=== PATIENT | male | born 1980 | race Caucasian/White ===

== ENCOUNTER 2016-12-02 22:41 | Emergency (ER) | payer OTHER ==
[2016-12-02 23:18] VITALS: TEMP 97.9
[2016-12-03] MEDS ORDERED: KETOROLAC 30 MG/ML 1 ML VIAL IVP STA (00:49)
[2016-12-03 01:13] LABS: Appearance,Urine Clear (Clear); Bilirubin,Urine Negative (Negative); Glucose,Urine (UA) Negative (Negative); Ketones,Urine Negative (Negative); Leukocyte Esterase,Urine Negative (Negative); Nitrite,Urine Negative (Negative); PH, Urine 6.5 (5.0-8.0); Protein,Urine Negative (Negative); UA Billing (MACRO vs. MICRO) CHEM; Urobilinogen,Urine <2.0 mg/dL (<2.0)
[2016-12-03 01:18] LABS: Basophils # (A) 0.1 k/uL (0-0.2); Basophils % (A) 1 %; CH 31.6; Eosinophils # (A) 0.3 k/uL (0-0.7); Eosinophils % (A) 4 %; HCT 44.5 % (39.0-53.0); HDW 2.38; Luc # (Auto) 0.23; Luc % (Auto) 3; Lymphocytes # (A) 3.6 k/uL (1.0-4.8); Lymphocytes % (A) 40 %; MCH 31.4 pg (25.0-35.0); MCHC 33.8 g/dL (31.0-37.0); MCV 93.1 fL (80.0-100.0); Mean Platelet Volume 7.9; Monocytes # (A) 0.5 k/uL (0-1.0); Monocytes % (A) 6 %; Neutrophils # (A) 4.3 k/uL (1.3-7.7); Neutrophils % (A) 47 %; RBC 4.78 m/uL (4.30-5.90); RDW 12.8 % (11.5-15.5); WBC 9.1 k/uL (3.8-10.6); WBC (Perox) 9.05
[2016-12-03 01:24] LABS: ALT 49 U/L (21-72); AST 39 U/L (17-59); Alkaline Phosphatase 74 U/L (38-126); Anion Gap 10 mmol/L; Blood Urea Nitrogen 16 mg/dL (9-20); Calcium 9.3 mg/dL (8.4-10.2); Carbon Dioxide 27 mmol/L (22-30); Chloride 105 mmol/L (98-107); Glucose 86 mg/dL (74-99); Non-African American GFR(MDRD) >60 (>60 ml/min/1.73 sqM); Potassium 3.9 mmol/L (3.5-5.1); Sodium 142 mmol/L (137-145); Total Bilirubin 0.6 mg/dL (0.2-1.3); Total Protein 6.9 g/dL (6.3-8.2)
--- NOTE | 2016-12-03 01:38 | XR ---
EXAM: XR Abdomen, 1 View CLINICAL HISTORY: Reason: Pain TECHNIQUE: Frontal supine view of the abdomen/pelvis. COMPARISON: No relevant prior studies available. FINDINGS: Intraperitoneal space: No free air under the hemidiaphragms. Gastrointestinal tract: Nonobstructive bowel gas pattern. Organs: No organomegaly. Bones/joints: Unremarkable. Other findings: No suspicious calcifications. IMPRESSION: No acute findings.
--- NOTE | 2016-12-03 02:00 | ED ---
Abdominal Pain HPI - General Chief Complaint: Abdominal Pain Stated Complaint: abdominal pain Time Seen by Provider: 12/03/16 00:31 Source: patient, RN notes reviewed, old records reviewed Mode of arrival: ambulatory Limitations: no limitations - History of Present Illness Initial Comments: This is a 36 year old male with 2 days of periumbilical pain. Patient is concerned he has a hernia. Patient was seen at an urgent clinic today and they stated that he was constipated. PAtient reports he has done multiple things to relief constipation and has had large bowelmovements, but continues to have pain. Patient denies any fever chills, nausea, vomiting. PAtient states that there is no bulge at his umbilicus. Denies any blood in his stools. - Related Data Home Medications Medication Instructions Recorded Confirmed No Known Home Medications [No 12/02/16 12/02/16 Known Home Medications] Allergies Allergy/AdvReac Type Severity Reaction Status Date / Time No Known Allergies Allergy Verified 12/02/16 23:18 Review of Systems ROS Statement: Those systems with pertinent positive or pertinent negative responses have been documented in the HPI. ROS Other: All systems not noted in ROS Statement are negative. Past Medical History Past Medical History: No Reported History History of Any Multi-Drug Resistant Organisms: None Reported Past Surgical History: No Surgical Hx Reported Past Psychological History: No Psychological Hx Reported Smoking Status: Never smoker Past Alcohol Use History: Occasional Past Drug Use History: Marijuana General Exam - General Exam Comments Initial Comments: Well appearing 36 year old male, no distress. Limitations: no limitations General appearance: alert, in no apparent distress Head exam: Present: atraumatic, normocephalic, normal inspection Eye exam: Present: normal appearance, PERRL, EOMI. Absent: scleral icterus, conjunctival injection, periorbital swelling ENT exam: Present: normal exam, mucous membranes moist Neck exam: Present: normal inspection. Absent: tenderness, meningismus, lymphadenopathy Respiratory exam: Present: normal lung sounds bilaterally. Absent: respiratory distress, wheezes, rales, rhonchi, stridor Cardiovascular Exam: Present: regular rate, normal rhythm, normal heart sounds. Absent: systolic murmur, diastolic murmur, rubs, gallop, clicks GI/Abdominal exam: Present: soft, tenderness (tenderness around umbilicus. Positive carnets sign. ), normal bowel sounds, other (no evidence of hernia. ). Absent: distended, guarding, rebound, rigid Extremities exam: Present: normal inspection, full ROM, normal capillary refill. Absent: tenderness, pedal edema, joint swelling, calf tenderness Back exam: Present: normal inspection Neurological exam: Present: alert, oriented X3, CN II-XII intact Psychiatric exam: Present: normal affect, normal mood Skin exam: Present: warm, dry, intact, normal color. Absent: rash Course Vital Signs 12/02/16 12/03/16 23:13 02:13 Temperature 97.9 F Pulse Rate 61 69 Respiratory 18 16 Rate Blood Pressure 114/78 124/69 O2 Sat by Pulse 99 97 Oximetry Medical Decision Making - Medical Decision Making Patient is a 36 year old male with periumbilical pain for 2 days, no fever, vomiting. WAs seen at urgent care, told constipated, and has had multiple bowelmovements. - Lab Data Result diagrams: 12/03/16 01:00 12/03/16 01:00 Lab Results 12/03/16 12/03/16 12/03/16 Range/Units 01:00 01:00 01:00 WBC 9.1 (3.8-10.6) k/uL RBC 4.78 (4.30-5.90) m/uL Hgb 15.0 (13.0-17.5) gm/dL Hct 44.5 (39.0-53.0) % MCV 93.1 (80.0-100.0) fL MCH 31.4 (25.0-35.0) pg MCHC 33.8 (31.0-37.0) g/dL RDW 12.8 (11.5-15.5) % Plt Count 200 (150-450) k/uL Neutrophils % 47 % Lymphocytes % 40 % Monocytes % 6 % Eosinophils % 4 % Basophils % 1 % Neutrophils # 4.3 (1.3-7.7) k/uL Lymphocytes # 3.6 (1.0-4.8) k/uL Monocytes # 0.5 (0-1.0) k/uL Eosinophils # 0.3 (0-0.7) k/uL Basophils # 0.1 (0-0.2) k/uL Sodium 142 (137-145) mmol/L Potassium 3.9 (3.5-5.1) mmol/L Chloride 105 (98-107) mmol/L Carbon Dioxide 27 (22-30) mmol/L Anion Gap 10 mmol/L BUN 16 (9-20) mg/dL Creatinine 0.80 (0.66-1.25) mg/dL Est GFR (MDRD) Af Amer >60 (>60 ml/min/1.73 sqM) Est GFR (MDRD) Non-Af >60 (>60 ml/min/1.73 sqM) Glucose 86 (74-99) mg/dL Calcium 9.3 (8.4-10.2) mg/dL Total Bilirubin 0.6 (0.2-1.3) mg/dL AST 39 (17-59) U/L ALT 49 (21-72) U/L Alkaline Phosphatase 74 (38-126) U/L Total Protein 6.9 (6.3-8.2) g/dL Albumin 4.1 (3.5-5.0) g/dL Urine Color Yellow Urine Appearance Clear (Clear) Urine pH 6.5 (5.0-8.0) Ur Specific [place] 1.020 (1.001-1.035) Urine Protein Negative (Negative) Urine Glucose (UA) Negative (Negative) Urine Ketones Negative (Negative) Urine Blood Negative (Negative) Urine Nitrite Negative (Negative) Urine Bilirubin Negative (Negative) Urine Urobilinogen <2.0 (<2.0) mg/dL Ur Leukocyte Esterase Negative (Negative) Disposition Clinical Impression: Umbilical pain Disposition: HOME SELF-CARE Condition: Good Instructions: Abdominal Pain (ED) Additional Instructions: Patient has follow-up with her primary care provider if symptoms continue to persist. Take Motrin Tylenol for pain. Return to emergency department if any fevers or any other signs or symptoms occur. Referrals: Matt Barry DO [Primary Care Provider] - 1-2 days Time of Disposition: 01:59
[2016-12-03 02:16] VITALS: BP 124/69; PULSE 69; RESP 16
== END 2016-12-03 02:16 | disposition home or self-care (01) ==
LOC: EC 22:41
DX: R10.33 Periumbilical pain (principal)
CPT/HCPCS: 99284; 96374; 36415; 80053; 85025; 81003; 74000; J1885